=== PATIENT | male | born 1945 | race Caucasian/White ===

== ENCOUNTER → 2017-08-12 14:20 | Outpatient (REF) | payer MEDICARE, SELFPAY ==
[2017-08-12 14:35] LABS: Adenovirus F 40/41, stool Not Detected (NotDetected); Campylobacter Not Detected (NotDetected); Clostridium Difficile A/B, PCR Not Detected (NotDetected); Cryptosporidium Not Detected (NotDetected); Cyclospora Cayetanesis Not Detected (NotDetected); Entamoeba histolytica Not Detected (NotDetected); Enteroaggregative E coli Not Detected (NotDetected); Enteropathogenic E coli Not Detected (NotDetected); Enterotoxigenic E coli Not Detected (NotDetected); Giardia lamblia Not Detected (NotDetected); Norovirus Not Detected (NotDetected); Plesimonas Shigalloides, PCR Not Detected (NotDetected); Rotavirus A Not Detected (NotDetected); Salmonella, PCR Not Detected (NotDetected); Sapovirus Not Detected (NotDetected); Shiga-like toxin E coli Not Detected (NotDetected); Shigella Enterovasive E coli Not Detected (NotDetected); Vibrio Cholerae Not Detected (NotDetected); Vibrio, PCR Not Detected (NotDetected); Yersinia Entercolitica, PCR Not Detected (NotDetected)
[2017-08-12 17:48] LABS: Astrovirus Detected (NotDetected)
== END ==
LOC: LAB 14:20
PROVIDERS: Visit Provider Physician Assistant
DX: R19.7 Diarrhea, unspecified (principal); R10.9 Unspecified abdominal pain
CPT/HCPCS: 87507

== ENCOUNTER → 2018-02-03 12:58 | Outpatient (CLI) | payer MEDICARE, SELFPAY ==
--- NOTE | 2018-02-03 13:01 | MR_ITS ---
MR knee RT wo con Ordering Physician: Kayla Majano Patient Age: 72 years: Male HISTORY: ITS.REASON: RIGHT KNEE PAIN TECHNIQUE: Multiplanar multisequence imaging 1.5 Andree MR COMPARISON : FINDINGS ACL PCL intact. MCL and lateral collateral ligament intact. Quadriceps and patellar tendon intact. Normal patellofemoral relationships. There may be some mild chondral irregularities at the posterior patella particularly towards lateral facet. Joint effusion. Appears to be a Synovial cyst posterior to the lateral compartment is just posterior to the popliteus tendon,-posterior to the articulation between fibula and tibia. There are some small loose body fragments or synovial osteochondromas within this small fluid collection posterior to the popliteus tendon Sagittal image 9, 8, 7
== END ==
PROVIDERS: Visit Provider Orthopaedic Surgery
DX: M25.561 Pain in right knee (principal)
CPT/HCPCS: 73721

== ENCOUNTER → 2018-11-16 08:57 | Outpatient (POV) | payer MEDICARE, SELFPAY | PROVIDERS: Visit Provider Dentist | DX: Z00.00 Encounter for general adult medical examination without abnormal findings (principal) ==

== ENCOUNTER → 2019-01-18 08:04 | Outpatient (POV) | payer MEDICARE, SELFPAY | PROVIDERS: Visit Provider Dentist | DX: Z00.00 Encounter for general adult medical examination without abnormal findings (principal) ==

== ENCOUNTER → 2020-12-10 08:37 | Outpatient (CLI) | payer MEDICARE, SELFPAY ==
[2020-12-10 12:03] LABS: Coronavirus 19, PCR Not Detected (NotDetected); Influenza A, PCR Not Detected (NotDetected); Influenza B, PCR Not Detected (NotDetected)
== END ==
PROVIDERS: Visit Provider Internal Medicine Gastroenterology
DX: Z01.812 Encounter for preprocedural laboratory examination (principal); Z11.52 Encounter for screening for COVID-19; R10.84 Generalized abdominal pain; R63.4 Abnormal weight loss; Z13.810 Encounter for screening for upper gastrointestinal disorder
CPT/HCPCS: C9803; U0003; U0005

== ENCOUNTER → 2021-01-05 13:40 | Outpatient (CLI) | payer MEDICARE, SELFPAY | PROVIDERS: Visit Provider Internal Medicine Gastroenterology | DX: Z01.812 Encounter for preprocedural laboratory examination (principal); Z20.822 Contact with and (suspected) exposure to COVID-19 | CPT/HCPCS: C9803; U0003; U0005 ==

== ENCOUNTER → 2021-01-20 09:12 | Outpatient (CLI) | payer MEDICARE, SELFPAY | PROVIDERS: Visit Provider Surgery | DX: Z01.812 Encounter for preprocedural laboratory examination (principal); Z11.52 Encounter for screening for COVID-19; C16.8 Malignant neoplasm of overlapping sites of stomach | CPT/HCPCS: C9803; U0003; U0005 ==